=== PATIENT | female | born 1935 | race Caucasian/White ===

== ENCOUNTER 2016-07-25 08:50 | Emergency (ER) | payer OTHER ==
[2016-07-25] MEDS ORDERED: NS 500 ML IV ONE (09:25)
--- NOTE | 2016-07-25 09:27 | PROVIDER DOCUMENTATION ---
HPI-Head Injury - General Chief Complaint: Fall Stated Complaint: Hemotoma to L side of face, Found in floor Time Seen by Provider: 07/25/16 09:02 Source: patient, EMS Allergies/Adverse Reactions: Patient Allergies Allergy/AdvReac Type Severity Reaction Status Date / Time codeine [Codeine] Allergy Severe ANAPHYLAXIS Verified 01/11/16 16:16 Penicillins Allergy Severe ANAPHYLAXIS Verified 01/11/16 16:16 Sulfa (Sulfonamide Allergy Severe ANAPHYLAXIS Verified 01/11/16 16:16 Antibiotics) [Sulfa(Sulfonamide Antibiotics)] Home Medications: Home Medication List Medication Instructions Recorded Confirmed Last Taken Type Aspirin [Ecotrin] 81 mg PO QAM 08/08/15 07/25/16 07/24/16 08:00 History Esomeprazole [Nexium] 40 mg PO QAM 08/08/15 07/25/16 07/24/16 08:00 History Fluoxetine HCl [Prozac] 20 mg PO 08/08/15 07/25/16 07/24/16 20:00 History Levothyroxine [Synthroid] 88 microgm PO QA 08/08/15 07/25/16 07/18/16 08:00 History PRAVAstatin [Pravachol] 40 mg PO Q 08/08/15 07/25/16 07/24/16 19:00 History Potassium Chloride [Klor-Con M20] 20 meq PO QA 08/08/15 07/25/16 07/24/16 08: 00 History Tramadol HCl 50 mg PO 08/08/15 07/25/16 07/24/16 20:00 History Ergocalciferol (Vitamin D2) 50,000 unit PO DAILY 12/10/15 07/25/16 07/24/16 08: 00 History [Vitamin D] Furosemide [Lasix] 40 mg PO DAILY 12/10/15 07/25/16 07/24/16 08:00 History Magnesium Oxide [Magnesium] 250 mg PO DAILY 12/10/15 07/25/16 07/24/16 08:00 History Ropinirole [Requip] 1 mg PO BID 12/10/15 07/25/16 07/24/16 19:00 History Warfarin [Coumadin] 6 mg PO 12/10/15 07/25/16 07/24/16 19:00 History Ferrous Sulfate 325 mg PO BID #120 tablet 12/12/15 07/25/16 07/24/16 20:00 Rx Trazodone [Desyrel] 100 mg PO QHS 01/11/16 07/25/16 07/24/16 20:00 History Baclofen 10 mg PO Q8H PRN PRN 01/12/16 07/25/16 Unknown History Furosemide [Lasix] 40 mg PO DAILY PRN PRN 01/12/16 07/25/16 Unknown History Losartan/Hydrochlorothiazide 1 tab PO DAILY 01/12/16 07/25/16 07/24/16 08:00 History [Hyzaar 100-25 Tablet] Multivitamin [Multi-Day Vitamins] 1 each PO DAILY 01/12/16 07/25/16 07/24/16 08: 00 History Zinc Sulfate 220 mg PO DAILY 01/12/16 07/25/16 07/24/16 08:00 History Levofloxacin [Levaquin] 500 mg PO DAILY #10 tablet 07/25/16 Unknown Rx - History of Present Illness-Head Injury Nature of Presenting Problem: Found in floor this am with hematoma to left forehead. pt reports she was getting out of bed this am became dizzy tried holding onto the door and legs gave out. Reports hit her head on wall. Denies loc. Reports her sleeping medication was increased from 1 pill to two pills. Complains of carlos,neckpai. Denies cp,n,v,blurry vision,memory loss. Head Injury Location: reports: frontal Other injuries associated with incident:: reports: head Quality of Pain: reports: aching Severity: reports: moderate Onset/Duration: reports: this morning (0500 am) Timing: reports: still present Method of Injury: reports: fell Any recent trauma/injury?: reports: minor Loss of Consciousness: no loss of consciousness Locality of Occurance: Home Similar Symptoms Previously?: No Recently seen or treated by another doctor?: No Review of Systems - Adult - REVIEW OF SYSTEMS - ADULT Constitutional: denies: chills, fever, fatique Eyes: reports: no symptoms reported Ears, Nose, Mouth & Throat: reports: no symptoms reported Cardiovascular: denies: chest pain, irregular heart rate, orthopnea, syncope Respiratory: reports: no symptoms reported Gastrointestinal: reports: no symptoms reported Genitourinary: reports: no symptoms reported Musculoskeletal: reports: neck pain. denies: bone pain, joint pain, joint swelling Integumentary: reports: no symptoms reported Neurological: reports: dizziness/vertigo, headache/migraines. denies: numbness , paresthesia, seizure, slurred speech Psychiatric: reports: no symptoms reported Endocrine: reports: no symptoms reported Hematologic/Lymphatic: reports: no symptoms reported Allergic/Immunologic: reports: no symptoms reported All Other Systems: Reviewed and Negative Past History - Adult - PAST MEDICAL HISTORY-ADULT Review of Records: reports: Nursing Assessment Review, Medications Reviewed Major Childhood Illnesses: reports: denies history Cardiovascular: reports: A-Fib, HTN, murmur, SC Gastrointestinal: reports: colitis, pancreatitis Endocrine/Immune: reports: thyroid disorder - PRIOR SURGERIES/PROCEDURES Surgical/Procedure History: reports: CABG, cholecystectomy, hysterectomy, orthopedic (extremity) (Left knee replacement) - IMMUNIZATION STATUS Childhood Immunizations: See Nurse Assessment Flu Vaccine: See Nurse Assessment - FAMILY HISTORY Family History: reviewed, not pertinent - SOCIAL HISTORY Smoking: denies Substance Use: none/never Physical Exam- Neurological - Physical Exam-Neuro Initial Vital Signs Reviewed: Yes General Appearance: appears well, alert, no apparent distress Eye Exam: bilateral eye: normal inspection, PERRL, EOMI HENMT: moist mucous membranes, normal ENT inspection, TMs normal, pharynx normal Head Injury: ecchymosis (left forehead with small hematoma), tenderness Neck: non-tender, full range of motion, supple, normal inspection Respiratory: chest non-tender, lungs clear, normal breath sounds, no pleuratic chest pain, no respiratory distress, no accessory muscle use Cardiovascular: regular rate, rhythm, no edema, no gallop, no JVD, no murmur Abdominal Exam: non tender, soft, no organomegaly, no pulsatile mass Extremity: normal range of motion, non-tender, normal gait, other (able to raise all 4 extremities without complications) associate brand manager Exam: normal hearing, normal speech, PERRL Motor/Sensory: no motor deficit, no sensory deficit, no pronator drift Neurologic: associate brand manager II-XII nml as tested, grossly normal, no motor/sensory deficits Integumentary: normal color, normal turgor, warm/dry Psych/Mental Status: normal mood/affect, normal thought content, normal thought process, oriented x 3 - Glascow Coma Scale Best Eye Response: (4) open spontaneously Best Verbal Response: (5) oriented Best Motor Response: (6) obeys commands Total Glascow Score: 15 Progress - PLAN OF CARE/RESULTS Progress/Plan/Lab Results: Orders Category Date Time Status Cardiac Monitoring DIRECTED Care 07/25/16 09:23 Active Finger Stick Blood Sugar (ED) DIRECTED Care 07/25/16 09:23 Active Saline Loc NOW Care 07/25/16 09:23 Active CHEST-PORTABLE [RAD] Stat Exams 07/25/16 09:24 Ordered HEAD/C-SPINE W/O CONTRAST [CT] Stat Exams 07/25/16 09:23 Ordered ALCOHOL BLOOD Stat Lab 07/25/16 09:23 Uncollected CBC WITH ELECTRONIC DIFF [HEME] Stat Lab 07/25/16 09:23 Uncollected CK PROFILE [SP CHEM] Stat Lab 07/25/16 09:23 Uncollected COMPREHENSIVE METABOLIC PANEL [CHEM] Stat Lab 07/25/16 09:23 Uncollected PROTIME WITH INR [COAG] Stat Lab 07/25/16 09:23 Uncollected PTT [COAG] Stat Lab 07/25/16 09:23 Uncollected TROPONIN T Stat Lab 07/25/16 09:23 Uncollected URINALYSIS W/POSS RFLX CULT [URINALYSIS] Stat Lab 07/25/16 09:23 Uncollected 0.9% Sodium Chloride Inj [Ns] 500 ml Med 07/25/16 09:25 Active IV 999 mls/hr Pulse Oximetry Stat Oth 07/25/16 09:23 Active EKG [EKG] Stat Ther 07/25/16 09:23 Ordered Vital Signs - 24 hr 07/25/16 08:54 Temperature 97.7 F Pulse Rate 100 H Respiratory 16 Rate Blood Pressure 164/83 O2 Sat by Pulse 100 Oximetry Laboratory Tests 07/25/16 07/25/16 07/25/16 09:02 09:37 09:37 WBC RBC Hgb Hct MCV MCH MCHC RDW Std Deviation Plt Count MPV Neut % (Auto) Lymph % (Auto) Banks % (Auto) Eos % (Auto) Baso % (Auto) Neut # (Auto) Lymph # (Auto) Banks # (Auto) Eos # (Auto) Baso # (Auto) PT INR PTT (Actin FS) Sodium 143 Potassium 4.6 Chloride 102 Carbon Dioxide 26 Anion Gap 15 BUN 15 Creatinine 0.8 BUN/Creatinine Ratio 19 Glucose 103 Calculated Osmolality 286 Calcium 9.5 Total Bilirubin 0.91 AST 69 H ALT 92 H Alkaline Phosphatase 85 Creatine Kinase 76 Troponin T [id number]-S-Uyksppvpwrg Pept Total Protein 6.8 Albumin 4.0 Globulin 2.8 Albumin/Globulin Ratio 1.4 Urine Source CLEAN CATCH Urine Color YELLOW Urine Turbidity CLEAR Urine pH 6.0 Ur Specific Roy 1.017 Urine Protein NEGATIVE Ur Glucose (Stick) NEGATIVE Ur Ketones (Stick) NEGATIVE Urine Blood NEGATIVE Urine Nitrite NEGATIVE Urine Bilirubin NEGATIVE Urobilinogen Dipstick NORMAL Urine Leukocytes NEGATIVE Urine WBC (Auto) <10 Urine RBC (Auto) <10 U Epithel Cells (Auto) <10 Urine Bacteria (Auto) NEGATIVE Plasma/Serum Ethyl Alc 07/25/16 07/25/16 07/25/16 09:37 09:40 09:40 WBC 7.91 RBC 5.16 Hgb 14.6 Hct 46.2 MCV 89.5 MCH 28.3 MCHC 31.6 L RDW Std Deviation 16.3 H Plt Count 100 L MPV 14.4 H Neut % (Auto) 67.9 Lymph % (Auto) 20.6 Banks % (Auto) 10.1 H Eos % (Auto) 1.1 Baso % (Auto) 0.3 Neut # (Auto) 5.37 Lymph # (Auto) 1.63 Banks # (Auto) 0.80 H Eos # (Auto) 0.09 Baso # (Auto) 0.02 PT 24.6 H INR 2.45 PTT (Actin FS) 32.4 Sodium Potassium Chloride Carbon Dioxide Anion Gap BUN Creatinine BUN/Creatinine Ratio Glucose Calculated Osmolality Calcium Total Bilirubin AST ALT Alkaline Phosphatase Creatine Kinase Troponin T < 0.010 Lwd-P-Cuicujehiub Pept Total Protein Albumin Globulin Albumin/Globulin Ratio Urine Source Urine Color Urine Turbidity Urine pH Ur Specific Roy Urine Protein Ur Glucose (Stick) Ur Ketones (Stick) Urine Blood Urine Nitrite Urine Bilirubin Urobilinogen Dipstick Urine Leukocytes Urine WBC (Auto) Urine RBC (Auto) U Epithel Cells (Auto) Urine Bacteria (Auto) Plasma/Serum Ethyl Alc 07/25/16 09:40 WBC RBC Hgb Hct MCV MCH MCHC RDW Std Deviation Plt Count MPV Neut % (Auto) Lymph % (Auto) Banks % (Auto) Eos % (Auto) Baso % (Auto) Neut # (Auto) Lymph # (Auto) Banks # (Auto) Eos # (Auto) Baso # (Auto) PT INR PTT (Actin FS) Sodium Potassium Chloride Carbon Dioxide Anion Gap BUN Creatinine BUN/Creatinine Ratio Glucose Calculated Osmolality Calcium Total Bilirubin AST ALT Alkaline Phosphatase Creatine Kinase Troponin T Oqp-Q-Aegrhsfulrz Pept 1303 H Total Protein Albumin Globulin Albumin/Globulin Ratio Urine Source Urine Color Urine Turbidity Urine pH Ur Specific Roy Urine Protein Ur Glucose (Stick) Ur Ketones (Stick) Urine Blood Urine Nitrite Urine Bilirubin Urobilinogen Dipstick Urine Leukocytes Urine WBC (Auto) Urine RBC (Auto) U Epithel Cells (Auto) Urine Bacteria (Auto) Plasma/Serum Ethyl Alc - EKG 1 Time of EKG reading by physician:: 08:53 EKG Read and Signed by:: Alexander Lin EKG Interpretation (*Must complete 3 of following elements*): Abnormal Rate: 75 Rhythm: afib [place]: normal QRS: normal Prior EKG Comparison: unchanged from prior - XRAY 1 XRAY: Bilateral XRAY Study: Chest Impression: Abnormal XRAY Interpretation: CMG; Pulmonary Vascular Congestion - CT/MRI 1 CT Study: Cervical Spine, Head Impression: Abnormal (cervical spondylosis. no injury to the cervical spine. Small pulmonary nodule. Recommend a follow up with chest Ct in about 1 year.) Departure - Departure Time of Disposition Order: 12:21 DIAGNOSIS: Head injury Qualifiers: Encounter type: initial encounter Qualified Code(s): S09.90XA - Unspecified injury of head, initial encounter Pneumonia Qualifiers: Aspiration pneumonia type: unspecified Laterality: left Lung location: unspecified part of lung Disposition: HOME 01 Certified Medical Emergency: Emergent Condition: Stable Additional Instructions: Return to ER immediately if your symptoms worsen. Prescriptions: Levofloxacin [Levaquin] 500 mg PO DAILY #10 tablet Referrals: Roger Saavedra [Primary Care Provider] - Attestation - Scribe Verification/Attestation Scribe:: Shira Marie Acting as Scribe for:: Alexander Lin Scribe documention review:: This chart was documented by a scribe and accurately reflects the service the provider performed and the decisions made by the provider. Physician Attestation - Physician Attestation I, the provider, attest to the following statement:: Alexander Lin Physician documentation Attestation:: This documentation recorded by the scribe accurately reflects the service I personally performed and the decisions made by me.
[2016-07-25 09:40] LABS: URINE CULTURE NEEDED? NO; URINE MICRO REVIEW NEEDED? NO; URINE SOURCE CLEAN CATCH
[2016-07-25 09:57] LABS: BILIRUBIN URINE NEGATIVE (NEGATIVE); BLOOD URINE NEGATIVE (NEGATIVE); COLOR YELLOW; GLUCOSE URINE NEGATIVE (NEGATIVE); LEUKOCYTES URINE NEGATIVE (NEGATIVE); NITRITE URINE NEGATIVE (NEGATIVE); PROTEIN URINE NEGATIVE (NEGATIVE); SP GRAVITY URINE 1.017; TURBIDITY URINE CLEAR (CLEAR); UROBILINOGEN URINE NORMAL (NORMAL)
[2016-07-25 09:58] LABS: UR EPITHELIAL CELLS <10 /HPF (<10); URINE BACTERIA NEGATIVE /HPF; URINE RBC <10 /HPF (<10); URINE WBC <10 /HPF (<10)
[2016-07-25] MEDS ORDERED: TYLENOL PO ONE (10:21)
[2016-07-25 10:27] LABS: INR 2.45; PROTIME 24.6 Seconds (9.2-11.7); PTT 32.4 Seconds (22.0-36.0)
[2016-07-25 10:33] LABS: BASO% 0.3 % (0.0-0.8); EOS# 0.09 X1000 (0.0-0.7); EOS% 1.1 % (0.0-10.0); HEMATOCRIT 46.2 % (37.0-47.0); HEMOGLOBIN 14.6 g/dL (12.0-16.0); LYMPH# 1.63 X1000 (1.2-3.4); LYMPH% 20.6 % (20.5-51.1); MANUAL DIFF NEEDED? NO; MCH 28.3 PG (27-31); MCHC 31.6 g/dL (33-37); MCV 89.5 FL (81-99); MONO% 10.1 % (1.7-9.3); MPV 14.4 FL (7.4-10.4); NEUT% 67.9 % (42.2-75.2); PLT 100 X1000 (130-400); RBC 5.16 XMIL (4.2-5.4)
--- NOTE | 2016-07-25 10:37 | Diag Imaging Result Document ---
PROCEDURE NAME: CHEST-PORTABLE - 07/25/2016 PORTABLE CHEST X-RAY: COMPARISON: 12/12/2015. FINDINGS: Stable cardiomegaly and sternotomy changes. There is significant worsening in pulmonary vascular congestion diffusely. There is stable obscuration of the cardiac apex indicating a chronic lingular infiltrate or scarring. No pneumothorax or large effusion. IMPRESSION: Cardiomegaly and pulmonary vascular congestion. Lingular infiltrate versus scarring.
--- NOTE | 2016-07-25 10:39 | Diag Imaging Result Document ---
PROCEDURE NAME: HEAD/C-SPINE W/O CONTRAST - 07/25/[address], 07/25/2016: A CT dose reduction protocol was used. COMPARISON: None. FINDINGS: The ventricles and sulci are normal in size and contour. No intracranial mass or hemorrhage. There is some mild patchy deep cerebral white matter lucency compatible with chronic microvascular disease. The skull is intact. The sinuses, mastoids, and middle ears are clear. There is probably a small anterior forehead scalp contusion. IMPRESSION: No acute intracranial injury. CT CERVICAL SPINE 07/25/2016: A CT dose reduction protocol was used. COMPARISON: None. FINDINGS: There is exaggeration of the normal cervical lordosis. No fracture or subluxation. There is mild to moderate degenerative disk disease notably at C6-C7. There is also some facet degeneration at the lower cervical spine. There is a small ground-glass nodule in the right lung apex. This measures 5 mm. IMPRESSION: 1. Cervical spondylosis. No injury to the cervical spine. 2. Small pulmonary nodule. Recommend a follow-up chest CT in about [address] [facility]
[2016-07-25 11:02] LABS: AGAP 15; ALKALINE PHOSPHATASE 85 U/L (32-104); BUN 15 mg/dL (8-22); CALCIUM 9.5 mg/dL (8.8-10.2); CHLORIDE 102 mmol/L (98-107); COSMO 286; GOT 69 U/L (10-30); GPT 92 U/L (10-36); POTASSIUM 4.6 mmol/L (3.5-5.1); SODIUM 143 mmol/L (136-145); TCO2 26 mmol/L (25-35); TOTAL BILIRUBIN 0.91 mg/dL (0.20-1.00); TOTAL PROTEIN 6.8 g/dL (6.3-8.3)
[2016-07-25 11:12] LABS: CK PROFILE 76 U/L (24-173)
[2016-07-25] MEDS ORDERED: LEVAQUIN PO ONE (11:56)
[2016-07-25] MEDS ORDERED: ROCEPHIN 1 GM/NS 50 ML IV ONE (12:11)
--- NOTE | 2016-07-25 12:19 | EKG Report ---
Test Performed on : 07/25/2016 08:53:54 AM Test Reason : AMS Blood Pressure : / mmHG Vent. Rate : 075 BPM Atrial Rate : 089 BPM P-R Int : 000 ms QRS Dur : 094 ms QT Int : 424 ms P-R-T Axes : 000 078 045 degrees QTc Int : 473 ms Atrial fibrillation. Abnormal ECG When compared with ECG of 11-JAN-2016 15:27, QT has lengthened Unconfirmed Result
[2016-07-25 13:15] VITALS: BP 113/65
== END 2016-07-25 13:25 | disposition home or self-care (01) ==
LOC: EDBD → ED 08:50
DX: S09.90XA Unspecified injury of head, initial encounter (principal); J18.9 Pneumonia, unspecified organism; S00.83XA Contusion of other part of head, initial encounter; R94.31 Abnormal electrocardiogram [ECG] [EKG]; R42 Dizziness and giddiness; R53.1 Weakness; M54.2 Cervicalgia; I48.91 Unspecified atrial fibrillation; Z79.899 Other long term (current) drug therapy; W19.XXXA Unspecified fall, initial encounter; I10 Essential (primary) hypertension; I25.2 Old myocardial infarction; E07.9 Disorder of thyroid, unspecified; Z95.1 Presence of aortocoronary bypass graft; Z96.652 Presence of left artificial knee joint; M47.892 Other spondylosis, cervical region; Z79.01 Long term (current) use of anticoagulants; Z79.82 Long term (current) use of aspirin
CPT/HCPCS: 70450; 71010; 72125; 80053; 81001; 82550; 82948; 83880; 84484; 85025; 85610; 85730; 93005; G0480; J0696; J7040; 80320

== ENCOUNTER 2016-09-10 14:02 | Inpatient (IN) ==
[2016-09-10] MEDS ORDERED: ASPIRIN PO STA (14:35)
--- NOTE | 2016-09-10 15:05 | Diag Imaging Result Document ---
PROCEDURE NAME: CHEST-2 VIEWS - 09/10/2016 CHEST X-RAY 2 VIEWS: COMPARISON: 07/25/2016. FINDINGS: There is extensive left upper lobe infiltrate compatible with bronchopneumonia. Stable surgical changes to the heart and cardiomegaly. No pneumothorax or significant effusion. Stable pulmonary vascular congestion. IMPRESSION: Large left upper lobe infiltrate compatible with bronchopneumonia or aspiration.
[2016-09-10 16:13] LABS: BASO% 0.2 % (0.0-0.8); EOS# 0.01 X1000 (0.0-0.7); HEMATOCRIT 41.6 % (37.0-47.0); HEMOGLOBIN 13.6 g/dL (12.0-16.0); IMM GRAN% 0.4 % (0.0-0.5); LYMPH# 2.73 X1000 (1.2-3.4); LYMPH% 11.1 % (20.5-51.1); MANUAL DIFF NEEDED? NO; MCH 28.8 PG (27-31); MCHC 32.7 g/dL (33-37); MCV 87.9 FL (81-99); MONO% 8.9 % (1.7-9.3); MPV 13.5 FL (7.4-10.4); NEUT% 79.4 % (42.2-75.2); PLT 131 X1000 (130-400); RBC 4.73 XMIL (4.2-5.4)
[2016-09-10 16:22] LABS: INR 2.06; PTT 38.7 Seconds (22.0-36.0)
[2016-09-10 16:26] LABS: PROTIME 22.6 Seconds (9.2-11.7)
[2016-09-10 16:29] LABS: AGAP 11; ALBUMIN 3.7 g/dL (3.5-5.0); ALKALINE PHOSPHATASE 95 U/L (32-104); BUN 18 mg/dL (8-22); CALCIUM 9.2 mg/dL (8.8-10.2); CHLORIDE 100 mmol/L (98-107); CK PROFILE 37 U/L (24-173); COSMO 280; GOT 68 U/L (10-30); GPT 67 U/L (10-36); MAGNESIUM 1.9 mg/dL (1.5-2.7); POTASSIUM 4.1 mmol/L (3.5-5.1); SODIUM 139 mmol/L (136-145); TCO2 28 mmol/L (25-35); TOTAL BILIRUBIN 1.44 mg/dL (0.20-1.00); TOTAL PROTEIN 7.1 g/dL (6.3-8.3)
[2016-09-10] MEDS ORDERED: ROCEPHIN 1 GM/NS 1 GM/50 ML IVPB IV ONE (16:59)
[2016-09-10] MEDS ORDERED: ZITHROMAX 500 MG/NS 500 MG/250 ML IVPB IV ONE (16:59)
[2016-09-10] MEDS ORDERED: TYLENOL PO PRN (19:18)
[2016-09-10] MEDS ORDERED: DUONEB (A & A) INH PRN (19:18)
[2016-09-10 21:51] LABS: URINE CULTURE NEEDED? NO; URINE MICRO REVIEW NEEDED? NO; URINE SOURCE CLEAN CATCH
[2016-09-10] MEDS: FERROUS SULFATE PO SCH (21:56)
[2016-09-10] MEDS: ULTRAM PO SCH (21:56)
[2016-09-10] MEDS: DESYREL PO SCH (21:56)
[2016-09-10] MEDS: NS 1,000 ML IV SCH (21:56)
[2016-09-10] MEDS: REQUIP PO SCH (21:57)
[2016-09-10 22:00] LABS: BILIRUBIN URINE NEGATIVE (NEGATIVE); BLOOD URINE NEGATIVE (NEGATIVE); COLOR YELLOW; GLUCOSE URINE NEGATIVE (NEGATIVE); LEUKOCYTES URINE NEGATIVE (NEGATIVE); NITRITE URINE NEGATIVE (NEGATIVE); PROTEIN URINE NEGATIVE (NEGATIVE); SP GRAVITY URINE 1.014; TURBIDITY URINE CLEAR (CLEAR); UR EPITHELIAL CELLS <10 /HPF (<10); URINE BACTERIA NEGATIVE /HPF; URINE RBC <10 /HPF (<10); URINE WBC <10 /HPF (<10); UROBILINOGEN URINE NORMAL (NORMAL)
--- NOTE | 2016-09-11 02:02 | HISTORY AND PHYSICAL ---
PRIMARY CARE PROVIDER: Dr. Saavedra. CHIEF COMPLAINT: Subjective fever with chills since about 4 a.m. HISTORY OF PRESENT ILLNESS: Ms Fawn Stokes is an 80-year-old, female, who lives at home alone, who has a history of chronic atrial fibrillation on Coumadin therapy, hypothyroidism, severe aortic stenosis, status post aortic valve replacement and hypertension, who presents with a nonproductive cough for 2 to 3 days, a runny nose, subjective fever with chills since about 4 a.m. Apparently, she presented to the ER in July after a fall. They had found a pneumonia on her chest x-ray at that time, and started her on antibiotics. They did not admit her during that time. Now we have a chest x-ray that shows a left upper lobe infiltrate. She has been started on Rocephin and azithromycin. Her white blood cell count is 24,000. She is afebrile. She does state that her urine is dark. She has painful urination, and this is gone on for about 1 to 2 days. She also has urinary frequency with this. So, a urinalysis will also be ordered. We will admit her to the medical floor. PAST MEDICAL HISTORY: Hypertension, chronic atrial fibrillation, constipation, hypothyroidism, macular degeneration, seizure, aortic stenosis status post aortic valve replacement, osteoporosis, congestive heart failure, hammertoe that causes her pain, GERD, hyperlipidemia, iron deficiency anemia. SURGICAL HISTORY: Cholecystectomy, cataract removal both eyes, hysterectomy, AVR on 07/29/2014, and a total left knee replacement, and she had an MORRIS neck growth removed from the right side of her neck. SOCIAL HISTORY: She lives at home alone, but her son is her neighbor. Denies tobacco, alcohol or illicit drug use, and gets around by walking cane or walker. FAMILY HISTORY: Positive for coronary artery disease in the mother and father. REVIEW OF SYSTEMS: A 14 point review of systems were complete, and all were negative except for those mentioned above HPI. ALLERGIES: Codeine, penicillin and sulfa, all cause anaphylaxis. HOME MEDICATIONS: Aspirin enteric-coated 81 mg p.o. daily, baclofen 10 mg p.o. every 8 hours as needed, vitamin D2, 50,000 units p.o. daily, Nexium 40 mg p.o. daily, ferrous sulfate 325 mg p.o. twice daily, Prozac 20 mg p.o. nightly, Lasix 40 mg p.o. daily. She was on Levaquin 500 mg p.o. daily, Synthroid 88 mcg p.o. daily, Losartan/hydrochlorothiazide 100/25 mg 1 tab p.o. daily, magnesium oxide 250 mg p.o. daily, multivitamin 1 tab p.o. daily, potassium chloride 20 mEq p.o. daily, Pravachol 40 mg p.o. nightly, Requip 1 mg p.o. twice daily, tramadol 50 mg p.o. nightly, Desyrel 100 mg p.o. nightly, Coumadin, patient states she takes 7 mg p.o. nightly, zinc sulfate 220 mg p.o. daily. All of these medications are to be re-verified by the nurse. LABORATORY DATA: White blood cells 24,000, hemoglobin 13, hematocrit 41, platelet count 131,000, INR is 2.06. PTT is 38.7. D-dimer 0.55. Sodium 139, potassium 4.1, BUN 18, creatinine 0.8. Glucose 103. Calcium 9.2, magnesium 1.9. Total bilirubin is 1.44. AST 68, ALT 67. CK 37, troponin less than 0.01. ProBNP 3763. Serum lactate 1.3. Urinalysis has been ordered. IMAGING: Chest x-ray, large left upper lobe infiltrate, compatible with bronchopneumonia or aspiration. PHYSICAL EXAMINATION: VITAL SIGNS: Temperature is 98.6, heart rate 100, respiratory 22, blood pressure 118/91, O2 saturation 96% on room air. She is 5 feet 6 inches tall, 150 pounds, BMI 24.2. GENERAL: Ms. Stokes is an 80-year-old, female, who is hard of hearing, but answers questions appropriately. HEENT: Atraumatic, normocephalic. Pupils equal, round, reactive to light. Extraocular movements intact. NECK: No JVD or carotid bruits noted. CARDIOVASCULAR: Irregularly irregular rate and rhythm. About a 2 to 3/6 systolic ejection murmur. No rubs or gallops. PULMONARY: Clear to auscultate, bilateral breath sounds. No accessory muscle use or work of breathing noted both anteriorly and posteriorly. Currently on room air. No work of breathing. GI: Soft, nontender, nondistended. Positive bowel sounds x4. EXTREMITIES: Trace edema in the lower extremities bilaterally. She has +2 dorsalis and radial pulses. NEUROLOGIC: A and O x4. Moves all extremities equally. SKIN: Warm, dry, intact. ASSESSMENT AND PLAN: 1. Large left upper lobe pneumonia, possible bronchial. White blood cell count is 24,000. She is afebrile, but did have subjective fever with chills that started at 4 a.m. She has been started on Rocephin and azithromycin. A couple weeks ago she was on Levaquin p.o., and was not admitted. Her lactate is normal. We will do pulmonary toilet. 2. Leukocytosis. Patient does complain of a signs and symptoms of a urinary tract infection. We will do a urinalysis. She has dysuria with frequency and darkness of the urine. Her cough is nonproductive. So, she is unable to produce sputum for culture, and she has blood cultures pending. 3. Hypertension, stable. 4. Chronic atrial fibrillation with severe aortic stenosis, status post AVR. She is on Coumadin therapy at home. It is therapeutic at this time. Unless this is a mechanical valve, she would need to be 2-1/2 to 3-1/2 on her INR. We will do daily INR's. 5. Hypothyroidism. Continue Synthroid. 6. Iron-deficiency anemia. Continue iron supplementation. 7. GERD. Continue Nexium. 8. Hyperlipidemia. Continue medications once verified. 9. Osteoporosis. Continue home medications once verified. 10. DVT prophylaxis will be Coumadin, once dose is verified. 11. Gastrointestinal prophylaxis. Again, with proton pump inhibitor. Dictated by DAVON Segovia for Nicholas Stearns MD cc: Dr. Saavedra. DAVON Segovia MD
[2016-09-11] MEDS: PRILOSEC PO SCH (06:28)
[2016-09-11 07:44] LABS: BASO% 0.2 % (0.0-0.8); EOS# 0.09 X1000 (0.0-0.7); EOS% 0.7 % (0.0-10.0); HEMATOCRIT 38.9 % (37.0-47.0); HEMOGLOBIN 12.4 g/dL (12.0-16.0); IMM GRAN# 0.02 X1000 (0.0-0.04); IMM GRAN% 0.2 % (0.0-0.5); LYMPH# 2.18 X1000 (1.2-3.4); MANUAL DIFF NEEDED? NO; MCH 28.4 PG (27-31); MCHC 31.9 g/dL (33-37); MCV 89.2 FL (81-99); MONO# 1.39 X1000 (0.11-0.59); MONO% 11.5 % (1.7-9.3); MPV 13.6 FL (7.4-10.4); NEUT% 69.4 % (42.2-75.2); PLT 103 X1000 (130-400); RBC 4.36 XMIL (4.2-5.4)
[2016-09-11 08:02] LABS: AGAP 11; ALBUMIN 3.4 g/dL (3.5-5.0); ALKALINE PHOSPHATASE 84 U/L (32-104); BUN 16 mg/dL (8-22); CALCIUM 8.7 mg/dL (8.8-10.2); CHLORIDE 103 mmol/L (98-107); COSMO 283; GOT 49 U/L (10-30); GPT 53 U/L (10-36); POTASSIUM 3.6 mmol/L (3.5-5.1); SODIUM 141 mmol/L (136-145); TCO2 27 mmol/L (25-35); TOTAL BILIRUBIN 1.39 mg/dL (0.20-1.00); TOTAL PROTEIN 6.6 g/dL (6.3-8.3)
[2016-09-11 08:16] LABS: INR 1.82; PROTIME 19.8 Seconds (9.2-11.7)
[2016-09-11] MEDS: NS 1,000 ML IV SCH ×2 (08:38→16:29)
[2016-09-11] MEDS: MAG-OX PO SCH (08:38)
[2016-09-11] MEDS: THERA M PLUS PO SCH (08:38)
[2016-09-11] MEDS: ASPIRIN EC PO SCH (08:39)
[2016-09-11] MEDS: REQUIP PO SCH ×2 (08:39→22:00)
[2016-09-11] MEDS: FERROUS SULFATE PO SCH ×2 (08:39→22:00)
[2016-09-11] MEDS: SYNTHROID PO SCH (08:39)
--- NOTE | 2016-09-11 14:39 | PROGRESS NOTE ---
DATE: 09/11/2016 SUBJECTIVE: Ms. Stokes is feeling better. She is coughing a little bit more. Breathing is comfortable.Vital signs: Temperature 98.3 degrees, pulse 78, respiration is 19, blood pressure 114/65. HEENT: Pupils are equal, round. Lungs: Clear in all lung urban. Cardiovascular: Regular rhythm and rate without murmur or S3. Weight 155 pounds. Urine output was over 400 mL from yesterday. DIAGNOSTIC DATA: White count 12,090, hematocrit 38, platelet count 103,000. Sodium 141, potassium 3.6, chloride 103. Bicarb 27, BUN 16, creatinine 0.7. Liver functions: Total bilirubin was 1.39, AST 49, ALT was 53 which has come down. Albumin 3.4. Chest x-ray from 09/10, yesterday: Large left upper lobe infiltrate compatible with broncho pneumonia, possible aspiration. ASSESSMENT AND PLAN: 1. Large left upper lobe pneumonia, possible bronchial pneumonia. White blood cell count was elevated. Continue present antibiotics. Clinically appears to be doing better. A couple weeks ago she was on Levaquin p.o. There is a possibility this was aspiration. She had some leukocytosis and we will follow up on, continue IV fluids and bronchial dilators breathing treatments. 2. Hypertension. 3. Chronic atrial fibrillation, severe aortic stenosis status post aortic valve replacement on Coumadin therapy. Her ProTime looks good at 22.6. 4. Review of her orders: She is on ceftriaxone, I believe 1 g daily, she is on azithromycin, and she is on trazodone 100 mg at bedtime, Ultram 50 mg at bedtime, Requip 1 mg p.o. b.i.d., normal saline at 75 mL an hour, Synthroid 88 mcg every morning, ferrous sulfate 325 mg b.i.d., aspirin 81 mg every morning. 5. Hypothyroidism on Synthroid, appears to be euthyroid. 6. History of iron-deficiency anemia. 7. Gastroesophageal reflux disease. 8. Osteoporosis. cc: Dread Cooley MD
[2016-09-11] MEDS: ROCEPHIN 1 GM/NS 1 GM/50 ML IVPB IV SCH (16:30)
[2016-09-11] MEDS: ZITHROMAX 500 MG/NS 500 MG/250 ML IVPB IV SCH (17:32)
[2016-09-11] MEDS: DESYREL PO SCH (22:00)
[2016-09-11] MEDS: ULTRAM PO SCH (22:06)
--- NOTE | 2016-09-12 03:38 | PROVIDER DOCUMENTATION ---
This chart was entered by Marilyn Leary Scribe, acting as scribe for Tony Pool MD. HPI-Chest Pain - General Chief Complaint: Chest Pain Stated Complaint: CP,SOB Time Seen by Provider: 09/10/16 16:52 Source: patient Allergies/Adverse Reactions: Patient Allergies Allergy/AdvReac Type Severity Reaction Status Date / Time codeine [Codeine] Allergy Severe ANAPHYLAXIS Verified 01/11/16 16:16 Penicillins Allergy Severe ANAPHYLAXIS Verified 01/11/16 16:16 Sulfa (Sulfonamide Allergy Severe ANAPHYLAXIS Verified 01/11/16 16:16 Antibiotics) [Sulfa(Sulfonamide Antibiotics)] Home Medications: Home Medication List Medication Instructions Recorded Confirmed Last Taken Type Aspirin [Ecotrin] 81 mg PO QAM 08/08/15 09/11/16 07/24/16 08:00 History Esomeprazole [Nexium] 40 mg PO QAM 08/08/15 09/11/16 07/24/16 08:00 History Fluoxetine HCl [Prozac] 20 mg PO 08/08/15 09/11/16 07/24/16 20:00 History Levothyroxine [Synthroid] 88 microgm PO QAM 08/08/15 09/11/16 07/18/16 08:00 History PRAVAstatin [Pravachol] 40 mg PO QHS 08/08/15 09/11/16 07/24/16 19:00 History Potassium Chloride [Klor-Con M20] 20 meq PO QAM 08/08/15 09/11/16 07/24/16 08: 00 History Tramadol HCl 50 mg PO 08/08/15 09/11/16 09/10/16 22:00 History Magnesium Oxide [Magnesium] 400 mg PO DAILY 12/10/15 09/11/16 07/24/16 08:00 History Ropinirole [Requip] 1 mg PO BID 12/10/15 09/11/16 07/24/16 19:00 History Warfarin [Coumadin] 6 mg PO 12/10/15 09/11/16 07/24/16 19:00 History Ferrous Sulfate 325 mg PO BID #120 tablet 12/12/15 09/11/16 07/24/16 20:00 Rx Trazodone [Desyrel] 100 mg PO QHS 01/11/16 09/11/16 09/10/16 22:00 History Baclofen 10 mg PO ONCE 01/12/16 09/11/16 Unknown History Furosemide [Lasix] 40 mg PO DAILY PRN PRN 01/12/16 09/11/16 Unknown History Losartan/Hydrochlorothiazide 1 tab PO DAILY 01/12/16 09/11/16 07/24/16 08:00 History [Hyzaar 100-25 Tablet] Multivitamin [Multi-Day Vitamins] 1 each PO DAILY 01/12/16 09/11/16 07/24/16 08: 00 History Zinc Sulfate 220 mg PO DAILY 01/12/16 09/11/16 07/24/16 08:00 History - History of Present Illness-CP Nature of Presenting Problem: 80 year old F presents to the ED with a cc of chest pain, SOB, and chills with an onset of this morning. PT states that she has had a burning sensation in her chest with shortness of breath. Location: reports: substernal Quality of Pain: reports: burning Severity in ED: mild Onset/Duration: this morning Timing: still present Context/Activities at Onset: reports: none Aspirin Treatment Today: 325 mg x 1, provided by ED Similar Symptoms Previously?: No Recently Seen Here or By Another Healthcare Provider: No Review of Systems - Adult - REVIEW OF SYSTEMS - ADULT Constitutional: reports: chills. denies: fever Eyes: reports: no symptoms reported Ears, Nose, Mouth & Throat: reports: no symptoms reported Cardiovascular: reports: chest pain. denies: palpitations Respiratory: reports: shortness of breath. denies: cough Gastrointestinal: denies: nausea, vomiting Genitourinary: reports: no symptoms reported Musculoskeletal: reports: no symptoms reported Integumentary: reports: no symptoms reported Neurological: reports: no symptoms reported Psychiatric: reports: no symptoms reported Endocrine: reports: no symptoms reported Hematologic/Lymphatic: reports: no symptoms reported Allergic/Immunologic: reports: no symptoms reported All Other Systems: Reviewed and Negative Past History - Adult - PAST MEDICAL HISTORY-ADULT Review of Records: reports: Nursing Assessment Review, Medications Reviewed Major Childhood Illnesses: reports: denies history Cardiovascular: reports: A-Fib, HTN, murmur, SC Gastrointestinal: reports: colitis, pancreatitis Endocrine/Immune: reports: thyroid disorder - PRIOR SURGERIES/PROCEDURES Surgical/Procedure History: reports: CABG, cholecystectomy, hysterectomy, orthopedic (extremity) (Left knee replacement) - IMMUNIZATION STATUS Childhood Immunizations: See Nurse Assessment Flu Vaccine: See Nurse Assessment - FAMILY HISTORY Family History: reviewed, not pertinent - SOCIAL HISTORY Smoking: non-smoker Substance Use: none/never Alcohol Use Frequency: never Physical Exam-General - PHYSICAL EXAM-ADULT Initial Vital Signs Reviewed: Yes - CONSTITUTIONAL General Appearance: appears well, alert, no apparent distress - RESPIRATORY Respiratory: chest non-tender, lungs clear, normal breath sounds, no pleuratic chest pain, no respiratory distress, no accessory muscle use - CARDIOVASCULAR Cardiovascular: irregularly irregular, other (systolic click) - SKIN Integumentary: normal color, normal turgor, warm/dry - PSYCHIATRIC Psych/Mental Status: normal mood/affect, normal thought content, normal thought process, oriented x 3 Progress - PLAN OF CARE/RESULTS Progress/Plan/Lab Results: Orders Category Date Time Status Admit - [facility] Routine AdmDCTranf 09/10/16 19:18 Ordered Activity - Up with Assistance ORDERED Care 09/10/16 19:18 Active Cardiac Monitoring DIRECTED Care 09/10/16 14:35 Completed Elevate Head of Bed DIRECTED Care 09/10/16 19:18 Active Encourage Fluids DIRECTED Care 09/10/16 19:18 Active Intake and Output-Strict Q 8-HR ASSESS Care 09/10/16 19:18 Active Nursing- Assist w/ IS as order ORDERED Care 09/10/16 19:18 Active Saline Loc NOW Care 09/10/16 14:35 Completed Turn, Cough and Deep Breathe Q2HR Care 09/10/16 19:18 Active Vital Signs Order Q 8-HR ASSESS Care 09/10/16 19:18 Active Social Service Consult Routine Cons 09/10/16 19:18 Active Regular Diet Diet 09/10/16 17:38 Active CHEST-2 VIEWS [RAD] Stat Exams 09/10/16 14:35 Completed BLOOD CULTURE [BLDCUL] Stat Lab 09/10/16 17:20 Results CBC WITH DIFF [HEME] Routine Lab 09/11/16 06:00 Completed CBC WITH ELECTRONIC DIFF [HEME] Stat Lab 09/10/16 15:50 Completed CK PROFILE [SP CHEM] Stat Lab 09/10/16 15:50 Completed COMPREHENSIVE METABOLIC PANEL [CHEM] Routine Lab 09/11/16 07:10 Completed COMPREHENSIVE METABOLIC PANEL [CHEM] Stat Lab 09/10/16 15:50 Completed D-DIMER [CHEM] Stat Lab 09/10/16 15:50 Completed LACTATE, PLASMA [CHEM] Stat Lab 09/10/16 17:28 Completed MAGNESIUM [CHEM] Stat Lab 09/10/16 15:50 Completed PRO B-NATRIURETIC PEPTIDE Stat Lab 09/10/16 15:50 Completed PROTIME WITH INR [COAG] Q24H Lab 09/11/16 07:10 Completed PROTIME WITH INR [COAG] Q24H Lab 09/12/16 06:00 Ordered PROTIME WITH INR [COAG] Q24H Lab 09/13/16 06:00 Ordered PROTIME WITH INR [COAG] Q24H Lab 09/14/16 06:00 Ordered PROTIME WITH INR [COAG] Q24H Lab 09/15/16 06:00 Ordered PROTIME WITH INR [COAG] Q24H Lab 09/16/16 06:00 Ordered PROTIME WITH INR [COAG] Stat Lab 09/10/16 15:50 Completed PTT [COAG] Stat Lab 09/10/16 15:50 Completed TROPONIN T Stat Lab 09/10/16 15:50 Completed URINALYSIS W/POSS RFLX CULT [URINALYSIS] Stat Lab 09/10/16 02:00 Completed 0.9% Sodium Chloride Inj [Ns] 1,000 ml Med 09/10/16 19:18 Active IV 75 mls/hr Acetaminophen [Tylenol] Med 09/10/16 19:18 Active 650 mg PO Q4H PRN PRN Albuterol 2.5MG/Ipratrop 0.5MG [Duoneb (A & A)] Med 09/10/16 19:18 Active 3 ml INH Q4H PRN PRN Aspirin Med 09/10/16 14:35 Discontinued 325 mg PO STAT STA Aspirin EC Med 09/11/16 09:00 Active 81 mg PO QAM Azithromycin 500 mg/Ns [Zithromax 500 mg/Ns] Med 09/11/16 18:00 Active 500 mg in 250 ml IV Q24H CefTRIAXONE 1 GM/NS [Rocephin 1 gm/Ns] Med 09/10/16 16:59 Discontinued 1 gm in 50 ml IV NOW CefTRIAXONE 1 GM/NS [Rocephin 1 gm/Ns] Med 09/11/16 17:00 Active 1 gm in 50 ml IV Q24H Ferrous Sulfate Med 09/10/16 21:00 Active 325 mg PO BID Levothyroxine [Synthroid] Med 09/11/16 09:00 Active 88 microgm PO QAM Magnesium Oxide [Mag-Ox] Med 09/11/16 09:00 Active 400 mg PO DAILY Multivit,Fe,Ca,FA & Min [Thera M Plus] Med 09/11/16 09:00 Active 1 each PO DAILY Omeprazole [Prilosec] Med 09/11/16 07:00 Active 20 mg PO DAILY@0700 Ropinirole [Requip] Med 09/10/16 21:00 Active 1 mg PO BID Tramadol [Ultram] Med 09/10/16 21:00 Active 50 mg PO HS Trazodone [Desyrel] Med 09/10/16 21:00 Active 100 mg PO QHS Aerosol Treatments Routine Oth 09/10/16 19:18 Completed Incentive Spirometer Routine Oth 09/10/16 19:18 Completed Oxygen Device Routine Oth 09/10/16 19:18 Completed Pulse Oximetry Routine Oth 09/10/16 19:18 Completed Telemetry [OM.EQ] Routine Oth 09/10/16 19:18 Active Transfer/Admit Order [TRANSFER] Routine Transfer 09/10/16 18:13 Completed Result Diagrams: 09/11/16 06:00 09/11/16 07:10 - EKG 1 Time of EKG reading by physician:: 14:11 EKG Read and Signed by:: Kamron Newman EKG Interpretation (*Must complete 3 of following elements*): Abnormal Rate: 83 Rhythm: atrial fibrillation - CONSULTS/PCP/HOSPITALIST Notification #1 *Consult/PCP/Hospitalist*: Dr. Partida Time Discussed: 17:16 Consult Disposition: Will see in ED, Admit Departure - Departure Time of Disposition Decision: 17:23 DIAGNOSIS: Pneumonia Disposition: ADMITTED INPATIENT 09 Certified Medical Emergency: Emergent Condition: Fair - Critical Care Note This patient required my direct personal management.: Yes This chart was documented by the indicated scribe, (Marilyn Leary Scribe) and accurately reflects the services I performed and decisions made by me, Tony Pool MD, as attested by the provider's signature.
[2016-09-12] MEDS: NS 1,000 ML IV SCH ×2 (06:06→11:18)
[2016-09-12] MEDS: PRILOSEC PO SCH (06:07)
--- NOTE | 2016-09-12 06:20 | Diag Imaging Result Document ---
PROCEDURE NAME: CHEST-PORTABLE - 09/12/2016 PORTABLE CHEST: COMPARISON: Compared to 09/10/2016. FINDINGS: There are infiltrates in the left lung. The heart remains enlarged. The left lung remains clear. No pleural effusions identified. Sternal wires are present. IMPRESSION: Persistent left pneumonia.
[2016-09-12 06:34] LABS: MANUAL DIFF NEEDED? NO
[2016-09-12 06:50] LABS: INR 1.26; PROTIME 13.4 Seconds (9.2-11.7)
[2016-09-12 06:53] LABS: BASO% 0.2 % (0.0-0.8); EOS# 0.19 X1000 (0.0-0.7); EOS% 2.3 % (0.0-10.0); HEMATOCRIT 40.6 % (37.0-47.0); HEMOGLOBIN 13.1 g/dL (12.0-16.0); IMM GRAN# 0.03 X1000 (0.0-0.04); IMM GRAN% 0.4 % (0.0-0.5); LYMPH# 1.97 X1000 (1.2-3.4); LYMPH% 23.8 % (20.5-51.1); MCH 28.7 PG (27-31); MCHC 32.3 g/dL (33-37); MONO# 1.11 X1000 (0.11-0.59); MONO% 13.4 % (1.7-9.3); MPV 13.6 FL (7.4-10.4); NEUT% 59.9 % (42.2-75.2); PLT 83 X1000 (130-400); RBC 4.56 XMIL (4.2-5.4)
[2016-09-12 07:20] LABS: AGAP 15; ALKALINE PHOSPHATASE 96 U/L (32-104); BUN 12 mg/dL (8-22); CALCIUM 8.7 mg/dL (8.8-10.2); CHLORIDE 104 mmol/L (98-107); COSMO 277; GOT 53 U/L (10-30); GPT 44 U/L (10-36); POTASSIUM 4.6 mmol/L (3.5-5.1); SODIUM 139 mmol/L (136-145); TCO2 20 mmol/L (25-35); TOTAL BILIRUBIN 1.28 mg/dL (0.20-1.00); TOTAL PROTEIN 6.7 g/dL (6.3-8.3)
[2016-09-12] MEDS: ASPIRIN EC PO SCH (09:42)
[2016-09-12] MEDS: REQUIP PO SCH ×2 (09:42→20:00)
[2016-09-12] MEDS: THERA M PLUS PO SCH (09:42)
[2016-09-12] MEDS: MAG-OX PO SCH (09:42)
[2016-09-12] MEDS: SYNTHROID PO SCH (09:42)
[2016-09-12] MEDS: FERROUS SULFATE PO SCH ×2 (09:43→20:02)
--- NOTE | 2016-09-12 16:13 | PROGRESS NOTE ---
DATE: 09/12/2016 SUBJECTIVE: This is an 80-year-old patient of Dr. Saavedra, came in with subjective fever and chills at about 4 o'clock in the morning of 09/10/2016. She lives at home. Has a history of chronic Coumadin therapy, hypothyroidism, severe aortic stenosis, status post aortic valve replacement, and hypertension, presents with a nonproductive cough for 2 or 3 days, runny nose, subjective fever and chills since about 4 o'clock in the morning. Presented to the emergency room in July after a fall. Found on her chest x-ray at that time and started her on antibiotics. They did not admit her during that time. Now we have a chest x-ray that shows left upper lobe infiltrate. She has been started on Rocephin and azithromycin. Her white blood cell count was 24,000. She is afebrile. She does state that her urine is dark. She has painful urination and this has gone on for about 1-2 days. She has urinary frequency with this. Urinalysis has also been ordered. PAST MEDICAL HISTORY: Hypertension, chronic atrial fib, constipation, hypothyroidism, macular degeneration, seizure disorder, aortic stenosis status post aortic valve replacement, osteoporosis, congestive heart failure, hammertoe that causes her pain, gastroesophageal reflux disease, hyperlipidemia, iron deficiency anemia. PAST SURGICAL HISTORY: Status post cholecystectomy, cataract removal of both eyes, hysterectomy, aortic valve replacement on 07/29/2014 and a total left knee replacement. She has had a neck growth removed from the right side of her neck. 1. So, she was admitted for left upper lobe pneumonia, possible bronchial, white blood cell count elevated, on Rocephin and azithromycin, and leukocytosis. Clinically she is better. 2. She is status post aortic valve replacement. I think this was for aortic insufficiency. 3. History of hypertension. 4. History of atrial fibrillation, severe aortic stenosis as well, I think, and status post aortic valve replacement. 5. Hypothyroidism. 6. Iron deficiency anemia. 7. Gastroesophageal reflux disease. 8. Hyperlipidemia. 9. Osteoporosis. She feels better. She fussed a little bit. She did not feel like she had gotten all of her home medications. She did not sleep much last night. OBJECTIVE: Vital signs: Today, afebrile, temp 97.5 degrees, pulse 118, respirations 23, blood pressure 152/63. Eyes: Pupils are equal, round. Lungs: Clear in all lung urban. Her breathing is comfortable. Cardiovascular: Regular rhythm and rate without S3. You can hear a 3 to 4/6 systolic ejection murmur at left sternal border. Seems to radiate up into the carotids. Abdomen: Soft. Skin: Warm and dry. Intake and output: Good urine output. LAB: White blood cell count 8,260, hematocrit 40, platelet count 83,000. Chemistry: Sodium 139, potassium 4.6, chloride 104, bicarb 20, BUN 12, creatinine 0.6, blood sugar 277, previous 1 was 283. Note, chest x-ray done today shows persistent left lobe pneumonia. ASSESSMENT AND PLAN: Left upper lobe pneumonia, possible bronchial pneumonia. Continue present regimen. cc: Dread Cooley MD
[2016-09-12] MEDS: ROCEPHIN 1 GM/NS 1 GM/50 ML IVPB IV SCH (16:22)
[2016-09-12] MEDS: ZITHROMAX 500 MG/NS 500 MG/250 ML IVPB IV SCH (19:52)
[2016-09-12] MEDS: DESYREL PO SCH (20:01)
[2016-09-12] MEDS: PRAVACHOL PO SCH (20:01)
[2016-09-12] MEDS: ULTRAM PO SCH (20:01)
[2016-09-12] MEDS ORDERED: COUMADIN PO SCH (21:00)
[2016-09-13] MEDS: PRILOSEC PO SCH (06:46)
[2016-09-13 07:16] LABS: INR 1.1; PROTIME 11.6 Seconds (9.2-11.7)
[2016-09-13] MEDS: ZINC SULFATE PO SCH (09:05)
[2016-09-13] MEDS: NS 1,000 ML IV SCH ×3 (09:05→20:45)
[2016-09-13] MEDS: MAG-OX PO SCH (09:06)
[2016-09-13] MEDS: FERROUS SULFATE PO SCH ×2 (09:06→20:49)
[2016-09-13] MEDS: HYZAAR 50/12.5 MG PO SCH (09:06)
[2016-09-13] MEDS: SYNTHROID PO SCH (09:06)
[2016-09-13] MEDS: REQUIP PO SCH ×2 (09:06→20:48)
[2016-09-13] MEDS: KLOR-CON PO SCH (09:06)
[2016-09-13] MEDS: ASPIRIN EC PO SCH (09:07)
[2016-09-13] MEDS: THERA M PLUS PO SCH (09:07)
--- NOTE | 2016-09-13 13:38 | PROGRESS NOTE ---
DATE: 09/13/2016 SUBJECTIVE: Ms. Stokes is breathing better, doing better. OBJECTIVE: Temperature 98.0, pulse 127, respirations 18, blood pressure 114/53. Lungs: Lungs are clear in all lung urban. Cardiovascular exam: Regular rhythm and rate without murmur or S3. Abdomen: Soft. Skin: Warm and dry. Urine output appeared to be good. Reviewed lab from yesterday. Hematocrit is stable at 40. Chemistries looked good yesterday as well. Creatinine 0.6. Chest x-ray had persistent left lower lobe pneumonia. Clinically improving. ASSESSMENT AND PLAN: 1. Admitted with left lower lobe pneumonia, bronchial pneumonia, is improving clinically on Rocephin and azithromycin. Leukocytosis improved. Continue bronchodilation. 2. Aortic valve replacement for aortic stenosis recently. 3. History of hypertension. 4. History of atrial fibrillation, severe aortic stenosis in the past. 5. History of hypothyroidism, euthyroid at present time. 6. Iron deficiency anemia. 7. Gastroesophageal reflux disease. 8. Patient's lab coagulation prothrombin time 11.6. Patient is back on Coumadin 6 mg at bedtime. Will continue fluids at normal saline 75 mL an hour. Her rate and blood pressure look good. Hopefully can go home soon. I may bridge her with some Lovenox while her Coumadin trends up to therapeutic number. cc: Dread Cooley MD
[2016-09-13] MEDS: LOVENOX SUBQ SCH (14:12)
[2016-09-13] MEDS: ROCEPHIN 1 GM/NS 1 GM/50 ML IVPB IV SCH (16:44)
[2016-09-13] MEDS: ZITHROMAX 500 MG/NS 500 MG/250 ML IVPB IV SCH (20:46)
[2016-09-13] MEDS: ULTRAM PO SCH (20:48)
[2016-09-13] MEDS: PRAVACHOL PO SCH (20:48)
[2016-09-13] MEDS: DESYREL PO SCH (20:48)
[2016-09-13] MEDS: COUMADIN PO SCH (20:48)
[2016-09-14] MEDS: LOVENOX SUBQ SCH ×2 (01:22→12:52)
[2016-09-14] MEDS: PRILOSEC PO SCH (06:09)
[2016-09-14 07:21] LABS: INR 1.14; PROTIME 12.1 Seconds (9.2-11.7)
[2016-09-14] MEDS: REQUIP PO SCH ×2 (09:31→20:46)
[2016-09-14] MEDS: ASPIRIN EC PO SCH (09:31)
[2016-09-14] MEDS: SYNTHROID PO SCH (09:31)
[2016-09-14] MEDS: KLOR-CON PO SCH (09:31)
[2016-09-14] MEDS: ZINC SULFATE PO SCH (09:31)
[2016-09-14] MEDS: THERA M PLUS PO SCH (09:32)
[2016-09-14] MEDS: HYZAAR 50/12.5 MG PO SCH (09:32)
[2016-09-14] MEDS: MAG-OX PO SCH (09:32)
[2016-09-14] MEDS: FERROUS SULFATE PO SCH ×2 (09:32→20:46)
[2016-09-14] MEDS: NS 1,000 ML IV SCH ×2 (09:33→20:47)
--- NOTE | 2016-09-14 15:51 | PROGRESS NOTE ---
DATE: 09/14/2016 SUBJECTIVE: She is coughing less but feels like it is looser and no fever. No shortness of breath. OBJECTIVE: Afebrile. Temperature 97.7 degrees, pulse 105, respirations 18, blood pressure 154/89. CVP is less than 6 cm. Lungs are clear in all lung urban. Cardiovascular: Regular rhythm and rate without murmur or S3. Abdomen is soft. Skin is warm and dry. Urine output over 4 L. LABORATORY DATA: On 09/12/2016, hematocrit is stable at 40. Electrolytes look good. Creatinine 0.6. White blood cell count has come down nice to 8,260. She came in with 24,000. ASSESSMENT AND PLAN: 1. Left lower lobe pneumonia. Getting better, improving. 2. Aortic valve replacement with mechanical valve. We have got to get her ProTime back. 3. History of hypertension. 4. Atrial fibrillation. 5. Severe stenosis. 6. History of hypothyroidism. Euthyroid at the present time. 7. Iron deficiency anemia. 8. Gastroesophageal reflux disease. ProTime is only 12.1, so continue Coumadin 10 mg at bedtime. cc: Dread Cooley MD
[2016-09-14] MEDS: ROCEPHIN 1 GM/NS 1 GM/50 ML IVPB IV SCH (17:05)
[2016-09-14] MEDS: ULTRAM PO SCH (20:45)
[2016-09-14] MEDS: COUMADIN PO SCH (20:46)
[2016-09-14] MEDS: ZITHROMAX 500 MG/NS 500 MG/250 ML IVPB IV SCH (20:46)
[2016-09-14] MEDS: PRAVACHOL PO SCH (20:46)
[2016-09-14] MEDS: DESYREL PO SCH (20:46)
[2016-09-15] MEDS: LOVENOX SUBQ SCH ×2 (01:55→14:12)
[2016-09-15] MEDS: PRILOSEC PO SCH (06:30)
[2016-09-15] MEDS: NS 1,000 ML IV SCH ×2 (07:23→17:35)
[2016-09-15 07:26] LABS: INR 1.28; PROTIME 13.6 Seconds (9.2-11.7)
[2016-09-15] MEDS: HYZAAR 50/12.5 MG PO SCH (08:50)
[2016-09-15] MEDS: SYNTHROID PO SCH (08:50)
[2016-09-15] MEDS: MAG-OX PO SCH (08:51)
[2016-09-15] MEDS: KLOR-CON PO SCH (08:51)
[2016-09-15] MEDS: ZINC SULFATE PO SCH (08:51)
[2016-09-15] MEDS: ASPIRIN EC PO SCH (08:51)
[2016-09-15] MEDS: THERA M PLUS PO SCH (08:51)
[2016-09-15] MEDS: FERROUS SULFATE PO SCH ×2 (08:51→20:18)
[2016-09-15] MEDS: REQUIP PO SCH ×2 (08:51→20:18)
[2016-09-15] MEDS ORDERED: MAALOX PLUS LIQUID PO PRN (14:40)
[2016-09-15] MEDS ORDERED: LIORESAL PO ONE (14:45)
--- NOTE | 2016-09-15 15:47 | PROGRESS NOTE ---
DATE: 09/15/2016 SUBJECTIVE: Ms. Stokes is feeling better, breathing better. She did have some palpitations this morning. Urine output has been good, above 3 L. LABORATORY: Reviewed from 09/12/2016. Electrolytes and laboratories look good. Creatinine is 0.6. ASSESSMENT AND PLAN: 1. Left lower lobe pneumonia, improving. 2. Aortic valve replacement with mechanical valve, awaiting Coumadin to become therapeutic. Prothrombin time is 13.6. She is on Lovenox bridge right now. 3. History of atrial fibrillation. 4. History of severe aortic stenosis, status post aortic valve replacement last year with mechanical valve. 5. Iron deficiency anemia in the past. 6. Gastroesophageal reflux. Will make sure she is back on her Nexium. The family did ask that Cardiology get involved, though I think she has been seen by Dr. Villa in the past. cc: Dread Cooley MD
[2016-09-15] MEDS: ROCEPHIN 1 GM/NS 1 GM/50 ML IVPB IV SCH (17:35)
--- NOTE | 2016-09-15 18:48 | CONSULTATION ---
DATE OF CONSULTATION: 09/15/2016 CHIEF COMPLAINT: Irregular heartbeat, shortness of breath, cough. HISTORY OF PRESENT ILLNESS: Ms. Stokes is a pleasant 80-year-old female, a patient of mine. The patient presented to the hospital for admission on 09/10/2016 complaining of shortness of breath, chills, malaise. Upon presentation, a chest x-ray done on 09/10/2016 showed large left upper lobe infiltrate compatible with bronchopneumonia. At the time of presentation, her white count was 24,680 with a left shift. Her liver enzymes were slightly off. Her ProBNP was 3763. Her INR was therapeutic. Her D-dimer was slightly elevated. The patient was started on antibiotics. She has been taking ceftriaxone, azithromycin. She has improved; however, she is still having issues with her heart rate going a little too fast, and she feels somewhat weak. Subsequent chest x-ray, last one done on 09/12/2016, shows an infiltrate in the left lung. The patient denies having any chest pain. PAST MEDICAL HISTORY: Aortic valve disease. We performed a heart catheterization on her back in 07/2015 that showed normal coronary arteries and severe aortic stenosis. The patient subsequently underwent aortic valve replacement by Dr. Shea in [facility] using a [employer] Magna Ease pericardial valve. Since then, we have seen her at the office on followup. The last time I saw her was on 05/08/2016, and at that time she appeared to be stable. Since then, she has had at least one additional visit to the ER with early pneumonia, and she was treated for a few days with antibiotics. The patient has history of hypertension. She had some carotid artery disease; however, it is not critical. She has had hyperlipidemia. She has had bradycardia. HOME MEDICATIONS: At the time of hospital admission were listed as baclofen 10 mg daily, ropinirole (Requip) 1 mg twice a day, magnesium oxide 400 daily, furosemide 40 daily, levothyroxine 88 mcg daily, pravastatin 40 mg daily, losartan/hydrochlorothiazide 100/25 daily, aspirin 81 mg daily, potassium chloride 20 mEq daily, zinc sulfate 20, Warfarin 6 mg daily, Nexium 40 mg daily, ferrous sulfate 325 twice a day, tramadol 50 mg at bedtime, trazodone 100 daily. ALLERGIES: Codeine, penicillin and sulfa drugs. REVIEW OF SYSTEMS: She had been complaining of some cough prior to this admission, some wheezing. Neurologic: She has some numbness in the legs. Endocrine: No diabetes. No active thyroid issues. Generally she was complaining of fatigue. Abdomen: No complaints. Musculoskeletal: No complaints. Skin: No issues. No rashes. Psychiatric: No issues. Hematologic: Bruises easily. ENT: Unremarkable. Genitourinary: No issues. Cardiovascular: Some rapid pulse. PHYSICAL EXAMINATION: Blood pressure is 141/65, temperature 98.3, pulse 110, respirations 20. She is awake, alert, oriented, elderly, in no distress. HEENT: Unremarkable. Chest shows diminished breath sounds diffusely, especially over the left lung. Heart sounds are irregularly irregular, rapid. She does have a soft systolic murmur, ejective, 2/6. Abdomen is nontender. Extremities showed 1 to 2+ edema. Neurologic: She moves all 4 extremities, follows commands. DIAGNOSTIC DATA: Laboratory studies from 09/12/2016 showed sodium 139, potassium 4.6, BUN is 12, creatinine 0.6. Bilirubin is 1.28, AST is 53, ALT is 44. IMPRESSION: 1. The patient is presenting with left upper lobe pneumonia. 2. Atrial fibrillation with rapid response. 3. Aortic valve replacement with a pericardial valve. This was done for aortic stenosis. 4. History of hypertension. 5. History of hyperlipidemia. RECOMMENDATIONS: At this point in time, we will try to manage her apparent slight fluid overload. She probably has diastolic dysfunction. Historically, her ejection fraction was normal on last cardiac testing. Her EKG does not reveal any new Q waves to suggest myocardial ischemia, and she had normal coronary arteries on prior cardiac catheterization. We will try to slow down her heart rate with Cardizem and digoxin. Further intervention will depend on her clinical course. Thank you again for the opportunity to participate in her evaluation. Best regards. cc: Brandin Villa MD
[2016-09-15] MEDS: LANOXIN PO SCH (18:52)
[2016-09-15] MEDS: LASIX IV SCH (18:52)
[2016-09-15] MEDS: ZITHROMAX 500 MG/NS 500 MG/250 ML IVPB IV SCH (20:18)
[2016-09-15] MEDS: PRAVACHOL PO SCH (20:18)
[2016-09-15] MEDS: COUMADIN PO SCH (20:18)
[2016-09-15] MEDS: PROZAC PO SCH (20:18)
[2016-09-15] MEDS: DESYREL PO SCH (20:18)
[2016-09-15] MEDS: ULTRAM PO SCH (20:19)
[2016-09-15] MEDS: CARDIZEM PO SCH (20:24)
[2016-09-16] MEDS: LANOXIN PO SCH ×2 (00:30→06:11)
[2016-09-16] MEDS: LOVENOX SUBQ SCH ×2 (00:31→13:38)
[2016-09-16] MEDS: NS 1,000 ML IV SCH ×2 (01:33→13:38)
[2016-09-16] MEDS: CARDIZEM PO SCH ×4 (01:54→20:39)
[2016-09-16] MEDS: PRILOSEC PO SCH (06:11)
[2016-09-16] MEDS: ASPIRIN EC PO SCH (08:41)
[2016-09-16] MEDS: ZINC SULFATE PO SCH (08:41)
[2016-09-16] MEDS: KLOR-CON PO SCH (08:42)
[2016-09-16] MEDS: REQUIP PO SCH ×2 (08:42→20:39)
[2016-09-16] MEDS: HYZAAR 50/12.5 MG PO SCH (08:42)
[2016-09-16] MEDS: SYNTHROID PO SCH (08:42)
[2016-09-16] MEDS: FERROUS SULFATE PO SCH ×2 (08:42→20:40)
[2016-09-16] MEDS: MAG-OX PO SCH (08:42)
[2016-09-16] MEDS: THERA M PLUS PO SCH (08:42)
[2016-09-16] MEDS: LASIX IV SCH (08:42)
[2016-09-16 09:13] LABS: INR 1.53; PROTIME 16.5 Seconds (9.2-11.7)
--- NOTE | 2016-09-16 12:29 | PROGRESS NOTE ---
DATE: 09/16/2016 CHIEF COMPLAINT: Irregular heartbeat, shortness of breath. SUBJECTIVE: Ms. Stokes is generally feeling better today. She is not having any chest pain. Breathing is better, not coughing that much. OBJECTIVE: Heart rate is a little better controlled, rate early in the morning was 90 beats per minute. Temperature is 98.5, pulse 90, respirations 18, blood pressure 143/67. She is awake, alert, in no distress. HEENT is unremarkable. Chest: Diminished breath sounds in left lung. Heart sounds irregularly irregular with a systolic murmur 2/6. Abdomen is nontender. Extremities showed no edema. Neurologic: Moves all 4 extremities. DIAGNOSTIC DATA: Blood work showed ProTime and INR of 16.5 and 1.53. This is going up. C- reactive yesterday was 38.59, and her sedimentation rate was 52, consistent with the diagnosis of pneumonia. Her last chest x-ray was done 4 days ago and showed the infiltration of the left lung. IMPRESSION: 1. Left upper lobe pneumonia. 2. Chronic atrial fibrillation with rapid ventricular response. 3. Subtherapeutic anticoagulation. This is gradually getting better on increasing doses of Coumadin. 4. Status post aortic valve replacement with a pericardial valve. RECOMMENDATIONS: At this point in time, the patient continues to improve. I would continue supportive care and management of pneumonia. We will make her Cardizem 60 mg every 8 hours to try to regulate her heart rate a little better. I am putting her on digoxin 0.125 mg daily. Her INR is getting up closer to the recommended range. We will see how she does. I anticipate this patient going home probably in a couple of days. cc: Brandin Villa MD
--- NOTE | 2016-09-16 14:29 | DISCHARGE SUMMARY ---
ADMISSION DATE: 09/10/2016 DISCHARGE DATE: 09/17/2016 HISTORY: This is an 80-year-old who presented with subjective fever, chills for about 24 hours' duration. She has a history of chronic atrial fib, Coumadin therapy, hypothyroidism, severe aortic stenosis, status post aortic valve replacement with pericardial tissue valve, hypertension. Presented with nonproductive cough for 2-3 days, runny nose, subjective fever, chills, about 4 o'clock a.m. night before. Apparently presented to the emergency room in July after a fall. They found a pneumonia on her chest x-ray. At that time they started her on antibiotics. They did not admit her during that time. Chest x-ray shows a left upper lobe infiltrate. Started on Rocephin and azithromycin. White blood cell count 2,4000 when she presented. PAST MEDICAL HISTORY: To review again: 1. Hypertension. 2. Chronic atrial fibrillation. 3. Constipation. 4. Hypothyroidism. 5. Macular degeneration. 6. Seizure disorder. 7. Aortic stenosis status post aortic valve replacement with tissue valve. 8. Osteoporosis. 9. Congestive heart failure. 10. Hammertoe causes her pain. 11. Gastroesophageal reflux disease. 12. Hyperlipidemia. 13. Iron deficiency anemia. PAST SURGICAL HISTORY: 1. Status post cholecystectomy. 2. Cataract removed both eyes. 3. Hysterectomy. 4. Aortic valve replacement 07/29/2014. 5. Total knee replacement. 6. She also had a neck growth removed from the right side of her neck. HOSPITAL COURSE: She was admitted and given the antibiotics. Chest x-ray showed slow improvement, clinically improved quite a bit. We had held her Coumadin because of some Coumadin toxicity and restarted it. Protime came up to 16.5. She is taking the Coumadin because of underlying atrial fibrillation. But, clinically better. Dr. Villa saw her while she was here and felt she could probably go home on 09/17/2016. DISCHARGE MEDICATIONS: She will be on zinc sulfate 220 mg a day. Coumadin, I believe we will go back to her previous Coumadin dose; it was 6 mg I think at bedtime. Desyrel 100 mg at bedtime, Requip 1 mg b.i.d., tramadol 50 mg at bedtime, Pravachol 40 mg at bedtime, potassium chloride 20 mEq q.a.m., multivitamin 1 a day, magnesium oxide 4 mg a day, losartan hydrochlorothiazide which is 100/25 one a day, Synthroid 88 mcg a day, Lasix 40 mg a day, Prozac 20 mg at bedtime, ferrous sulfate 325 mg b.i.d., Nexium 40 mg a day. She was taking baclofen as needed and aspirin 81 mg a day. FOLLOWUP: Follow up with primary care. Follow up with Dr. Villa. cc: Dread Cooley MD
--- NOTE | 2016-09-16 15:51 | PROGRESS NOTE ---
DATE: 09/16/2016 SUBJECTIVE: The patient is feeling much better breathing comfortably and sleeping better. Temperature 98.3 degrees, pulse 101, respirations 20, and blood pressure 140/75. OBJECTIVE: Pupils are equal and round. Lungs are clear in all lung urban. Cardiovascular: Regular rhythm and rate without murmur or S3. Urine output is 720 mL. LABORATORY: Reviewed from the , CBC unremarkable. Electrolytes look good. ASSESSMENT AND PLAN: 1. Left upper lobe pneumonia doing better. Continue present antibiotics and probably put her on Levaquin when she is discharged tomorrow. 2. Chronic atrial fibrillation with rapid ventricular response. Rate controlled. 3. Supratherapeutic anticoagulation gradually getting better, increasing dose of Coumadin. 4. Status post aortic valve replacement. She has pericardial valve. DISCHARGE MEDICATIONS: 1. Zinc sulfate 220 mg daily. 2. For the Coumadin, we will adjust and probably put her on a previous dose. 3. Desyrel 100 mg at bedtime. 4. Ultram 50 mg at bedtime. 5. Requip 1 mg b.i.d. 6. Pravachol 40 mg a day. 7. Potassium chloride 20 mEq daily. 8. Prilosec 20 mg a day. 9. Multivitamin 1 a day. 10. Magnesium oxide 400 mg a day. 11. Losartan hydrochlorothiazide 2 p.o. daily, that is a 50/12.5 tablet. 12. Synthroid 88 mcg daily. 13. Lasix 20 mg daily. 14. Prozac 20 mg a day. 15. Ferrous sulfate 325 mg b.i.d. 16. Cardizem 60 mg p.o. q.8 hours. 17. Digoxin 125 mcg daily. 18. Aspirin 81 mg a day. cc: Dread Cooley MD
[2016-09-16] MEDS: ROCEPHIN 1 GM/NS 1 GM/50 ML IVPB IV SCH (18:27)
[2016-09-16] MEDS: PROZAC PO SCH (20:39)
[2016-09-16] MEDS: ZITHROMAX 500 MG/NS 500 MG/250 ML IVPB IV SCH (20:39)
[2016-09-16] MEDS: ULTRAM PO SCH (20:39)
[2016-09-16] MEDS: COUMADIN PO SCH (20:40)
[2016-09-16] MEDS: PRAVACHOL PO SCH (20:40)
[2016-09-16] MEDS: DESYREL PO SCH (20:40)
[2016-09-17] MEDS: NS 1,000 ML IV SCH (02:51)
[2016-09-17] MEDS: LOVENOX SUBQ SCH (04:48)
[2016-09-17] MEDS: CARDIZEM PO SCH ×2 (04:48→14:42)
[2016-09-17] MEDS: PRILOSEC PO SCH ×2 (05:58→06:07)
--- NOTE | 2016-09-17 06:27 | EKG Report ---
Test Performed on : 09/16/2016 06:37:53 AM Test Reason : atrial fibrillation Blood Pressure : / mmHG Vent. Rate : 090 BPM Atrial Rate : 090 BPM P-R Int : 000 ms QRS Dur : 092 ms QT Int : 402 ms P-R-T Axes : 000 082 053 degrees QTc Int : 491 ms Atrial fibrillation. with premature ventricular or aberrantly conducted complexes. Prolonged QT Abnormal ECG When compared with ECG of 10-SEP-2016 14:11, No significant change was found Confirmed by Zach URBINA, Prosper Villa ([id number]) on 09/17/2016 8:16:32 AM
[2016-09-17 06:56] LABS: INR 1.97; PROTIME 21.6 Seconds (9.2-11.7)
[2016-09-17 07:47] VITALS: BP 146/59
[2016-09-17] MEDS: HYZAAR 50/12.5 MG PO SCH (08:38)
[2016-09-17] MEDS: ZINC SULFATE PO SCH (08:38)
[2016-09-17] MEDS: ASPIRIN EC PO SCH (08:41)
[2016-09-17] MEDS: REQUIP PO SCH (08:41)
[2016-09-17] MEDS: FERROUS SULFATE PO SCH (08:41)
[2016-09-17] MEDS: MAG-OX PO SCH (08:41)
[2016-09-17] MEDS: SYNTHROID PO SCH (08:41)
[2016-09-17] MEDS: THERA M PLUS PO SCH (08:41)
[2016-09-17] MEDS: KLOR-CON PO SCH (08:41)
[2016-09-17] MEDS: LASIX IV SCH (08:42)
[2016-09-17] MEDS ORDERED: LANOXIN PO SCH (09:00)
== END 2016-09-17 15:01 | disposition home or self-care (01) ==
LOC: ED 14:02 → SUATTDRO 18:36 → 3N 18:36
PROVIDERS: ATTEND Emergency Medicine